=== PATIENT | male | born 1985 | race Caucasian/White ===

== ENCOUNTER 2020-11-04 21:42 | Emergency (ER) | payer OTHER ==
[~2020-11-04 21:42] MED LIST: CIPRO500 MG PO; PENICILLIN V P500 MG PO; TORADOL 10 MG T10 MG PO
== END 2020-11-05 01:18 | disposition left against medical advice (07) ==
LOC: ER1 21:42
DX: Z53.21 Procedure and treatment not carried out due to patient leaving prior to being seen by health care provider (principal)
CPT/HCPCS: 73030; 73080; 73110

== ENCOUNTER 2021-04-27 11:31 | Emergency (ER) | payer OTHER | END 2021-04-27 13:50 | disposition home or self-care (01) | LOC: ER1 11:31 | DX: S39.012A Strain of muscle, fascia and tendon of lower back, initial encounter (principal); S50.311A Abrasion of right elbow, initial encounter; F17.210 Nicotine dependence, cigarettes, uncomplicated; Z23 Encounter for immunization; W19.XXXA Unspecified fall, initial encounter | CPT/HCPCS: 72100; 73080; 73090; 90471; 90715; 96372; 99283; J1885 ==